=== PATIENT | female | born 1940 | race Caucasian/White ===

== ENCOUNTER 2017-11-11 10:17 | Inpatient (IN) | payer MEDICARE, MEDICAID ==
[2017-11-11] MEDS ORDERED: Benzocaine/Cetylpyridinium/Menthol Lozenge MUCMEM PRN (13:54)
[2017-11-11] MEDS ORDERED: Zolpidem 5 MG Tab PO PRN (13:54)
[2017-11-11] MEDS ORDERED: Magnesium Hydroxide 400 MG/5 ML Susp 30 ML Cup PO PRN (13:54)
[2017-11-11] MEDS ORDERED: Acetaminophen 325 MG Tab PO PRN (13:54)
--- NOTE | 2017-11-11 14:00 | PCM.HP ---
H&P History of Present Illness - General Date of Service: 11/11/17 Admit Problem/Dx: Admission Diagnosis/Problem Status post bilateral aortofemoral artery bypass grafting for history of bilateral femoral stenosis - History of Present Illness Initial Comments - Free Text/Narative: Patient is 77-year-old female who is admitted for swing bed after having bilateral aortofemoral bypass grafting at [facility] on 10/29/2017. She is still with femoral stenosis for quite some time leading to bilateral lower extremity ischemia. She also has CHF and other comorbidities along with poor nutrition and muscle wasting secondary to the above and COPD and poor intake. She requires physical therapy for strengthening, ambulation and proprioception. occupational therapy for wound cares and ADLs. She has mild cognitive deficits and is forgetful but otherwise very pleasant and conversant. At this time she denies any headache, blurred vision (she does wear glasses), tinnitus, change in taste or smell, difficulty chewing or swallowing, coughing or choking with swallowing, sore throat, neck or jaw shoulder or back pain, denies cough, wheezing, dyspnea at rest or with exertion. She is overall weak thus why she is here. She denies any palpitations, coldness to the extremities pain in the extremities other than the right plantar surface of the foot for which she was told was "gout". She has been having loose stools as of recently but otherwise regular. History of colectomy in the past with renal anastomosis for adenocarcinoma, at times incontinent of bowel bladder. She has an abdominal incision from her surgery which she denies any drainage oozing or weeping. She denies any pain or tenderness along the area. No abdominal distention. She is eager to work with physical therapy and occupational therapy. - Related Data Allergies/Adverse Reactions: Allergies Allergy/AdvReac Type Severity Reaction Status Date / Time No Known Allergies Allergy Verified 11/11/17 13:12 Home Medications: Home Meds Aspirin [Ecotrin] 81 mg PO DAILY 11/11/17 [History] Ferrous Sulfate 325 mg PO DAILY 11/11/17 [History] Furosemide [Lasix] 80 mg PO DAILY 11/11/17 [History] Levothyroxine [Synthroid] 100 mcg PO DAILY 11/11/17 [History] Lutein 20 mg PO Q48H 11/11/17 [History] Multivitamin [Daily Jaya] 1 tab PO QPM 11/11/17 [History] Naproxen Sodium 220 mg PO BID PRN 11/11/17 [History] Simvastatin [Zocor] 10 mg PO BEDTIME 11/11/17 [History] Past Medical History HEENT History: Reports: Hard of Hearing, Impaired Vision Cardiovascular History: Reports: Heart Failure, Other (See Below) Other Cardiovascular History: Atherosclerotic Peripheral Artery Disease Respiratory History: Reports: COPD Gastrointestinal History: Reports: Hiatal Hernia, Other (See Below) Other Gastrointestinal History: hx of colon cancer Genitourinary History: Reports: Urinary Incontinence 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 Psychiatric History: Reports: Dementia (Likely cerebrovascular) Endocrine/Metabolic History: Reports: Hypothyroidism Hematologic History: Reports: Iron Deficiency Oncologic (Cancer) History: Reports: Colon - Past Surgical History Cardiovascular Surgical History: Reports: Vascular Surgery (Bilateral aortofemoral bypass grafting) GI Surgical History: Reports: Colon (Partial colectomy for adenocarcinoma with reanastomosis) Oncologic Surgical History: Reports: Other (See Below) (Adenocarcinoma of the colon resection) Social & Family History - Family History Family Medical History: Noncontributory - Tobacco Use Smoking Status *Q: Former Smoker Years of Tobacco use: 64 Packs/Tins Daily: 1.5 Used Tobacco, but Quit: Yes Month Tobacco Last Used: 6 weeks Second Hand Smoke Exposure: No - Caffeine Use Caffeine Use: Reports: Coffee, Soda, Tea, Other Other Caffeine Use: iced tea with lemon and pinch of sugar - Recreational Drug Use Recreational Drug Use: No - Living Situation & Occupation Living situation: Reports: Single, Alone (appartment) H&P Review of Systems - Review of Systems: Review Of Systems: ROS reveals no pertinent complaints other than HPI. Exam - Exam Exam: See Below - Vital Signs Vital Signs: Last Vital Signs Temp 98.1 F 11/11/17 12:30 Pulse 85 11/11/17 12:30 Resp 17 11/11/17 12:30 BP 103/52 L 11/11/17 12:30 Pulse Ox 92 L 11/11/17 12:30 Weight: 59.058 kg - Exam Quality Assessment: Other (Antiembolic hoses on bilaterally at the knees) General: Alert, Oriented, Cooperative. No: Mild Distress HEENT: PERRLA, Conjunctiva Clear, Hearing Intact, Nares Patent. No: Scleral Icterus Neck: Supple, Trachea Midline. No: JVD Lungs: Crackles (Coarse bilateral lower lobes likely chronic fibrosis.). No: Rhonchi, Stridor, Wheezing Cardiovascular: Regular Rate, Regular Rhythm, Other (Prominent S2) GI/Abdominal Exam: Normal Bowel Sounds, Soft, Other (Vertical midline incision from pubis to mid abdomen above the umbilicus. Soft intact with Steri-Strips applied dry. No induration no drainage no increased warmth or erythema.) (Female) Exam: Other (Vulva erythema consistent with yeast) Extremities: Pedal Edema (3+ pedal edema dorsum of the feet up to the ankle. No ulcerations. Arterial pulses are palpable and opinion marked with pen.), Slow Capillary Refill Peripheral Pulses: 1+: Posterior Tibial (L), Posterior Tibial (R), Dorsalis Pedis (L), Dorsalis Pedis (R), 2+: Femoral (L), Femoral (R), Popliteal (L), Popliteal (R) Skin: Wound (Surgical wound to the abdomen) Neurological: Strength Equal Bilateral, Normal Speech, Sensation Intact. No: Focal Deficit Neuro Extensive - Mental Status: Normal Mood/Affect Psychiatric: Alert, Normal Affect, Normal Mood *Q Meaningful Use (ADM) - VTE *Q VTE Criteria *Q: - Stroke *Q Stroke Criteria *Q: - AMI *Q AMI Criteria *Q: - Problem List (1) H/O aorto-femoral bypass SNOMED Code(s): 890499385 ICD Code: Z95.828 - PRESENCE OF OTHER VASCULAR IMPLANTS AND GRAFTS Status: Acute Current Visit: Yes Onset Date: 10/29/17 Problem Details: Dr. Bernardo Baldwin, . [facility]. (2) Femoral artery stenosis SNOMED Code(s): 973802512 ICD Code: I70.209 - UNSP ATHSCL MATCH-E-BE-NASH-SHE-WISH BAND ARTERIES OF EXTREMITIES, UNSP EXTREMITY Status: Chronic Current Visit: Yes (3) Encounter for surgical wound dressing change SNOMED Code(s): 207735324 ICD Code: Z48.01 - ENCOUNTER FOR CHANGE OR REMOVAL OF SURGICAL WOUND DRESSING Status: Acute Current Visit: Yes (4) Diastolic CHF with preserved left ventricular function, NYHA class 2 SNOMED Code(s): 301284502 ICD Code: I50.30 - UNSPECIFIED DIASTOLIC (CONGESTIVE) HEART FAILURE Status : Chronic Current Visit: Yes (5) COPD (chronic obstructive pulmonary disease) SNOMED Code(s): 48365729 ICD Code: J44.9 - CHRONIC OBSTRUCTIVE PULMONARY DISEASE, UNSPECIFIED Status : Chronic Current Visit: Yes Qualifiers: COPD type: unspecified COPD Qualified Code(s): J44.9 - Chronic obstructive pulmonary disease, unspecified Problem List Initiated/Reviewed/Updated: Yes Orders Last 24hrs: Active Orders 24 hr Category Date Time Status Patient Status [ADT] Routine ADT 11/11/17 12:05 Active Activity as Tolerated [RC] .Routine Care 11/11/17 12:05 Active Dietary Supplements [RC] WITHMEALSANDBED Care 11/11/17 12:05 Active Height and Weight [RC] WEEKLY Care 11/11/17 13:54 Ordered Notify Provider Vital Signs [RC] ASDIRECTED Care 11/11/17 13:54 Ordered Oxygen Therapy [RC] PRN Care 11/11/17 13:54 Ordered Up With Assistance [RC] ASDIRECTED Care 11/11/17 13:54 Ordered VTE/DVT Education [RC] Per Unit Routine Care 11/11/17 13:54 Ordered Vital Signs [RC] PER UNIT ROUTINE Care 11/11/17 13:54 Ordered Wound Care [RC] DAILY Care 11/11/17 12:05 Active OT Evaluation and Treatment [CONS] Routine Cons 11/11/17 12:05 Active PT Evaluation and Treatment [CONS] Routine Cons 11/11/17 12:05 Active Regular Diet [DIET] Diet 11/11/17 Lunch Active BASIC METABOLIC PANEL,BMP [CHEM] Routine Lab 11/13/17 06:00 Ordered CBC W/O DIFF,HEMOGRAM [HEME] Routine Lab 11/13/17 06:00 Ordered MAGNESIUM [CHEM] Routine Lab 11/13/17 06:00 Ordered Acetaminophen [Tylenol] Med 11/11/17 13:54 Ordered 650 mg PO Q4H PRN Aspirin [Halfprin] Med 11/12/17 09:00 Ordered 81 mg PO DAILY Benzocaine/Cetylpyrd/Menthol [Cepacol Sore Throat] Med 11/11/17 13:54 Ordered 1 lozenge MUCMEM ASDIRECTED PRN Ferrous Sulfate Med 11/12/17 09:00 Ordered 325 mg PO DAILY Furosemide [Lasix] Med 11/12/17 09:00 Ordered 80 mg PO DAILY Levothyroxine [Synthroid] Med 11/12/17 09:00 Ordered 100 mcg PO DAILY Magnesium Hydroxide [Milk of Magnesia] Med 11/11/17 13:54 Ordered 30 ml PO Q12H PRN Multivitamins [Tab-A-Jaya] Med 11/11/17 17:00 Ordered 1 tab PO QPM Naproxen Sodium Med 11/11/17 13:50 Ordered 220 mg PO BID PRN Simvastatin [Zocor] Med 11/11/17 21:00 Ordered 10 mg PO BEDTIME Zolpidem [Ambien] Med 11/11/17 13:54 Ordered 5 mg PO BEDTIME PRN GENE Hose [Antiembolic Hose] [OM.PC] Routine Oth 11/11/17 13:46 Ordered Code Status [Resuscitation Status] Routine Resus Stat 11/11/17 13:45 Ordered Medication Orders Acetaminophen (Tylenol) 650 mg PO Q4H PRN PRN Reason: Pain (Mild 1-3)/fever Aspirin (Halfprin) 81 mg PO DAILY MAURILIO Benzocaine/Menthol (Cepacol Sore Throat) 1 lozenge MUCMEM ASDIRECTED PRN PRN Reason: Sore Throat Ferrous Sulfate (Ferrous Sulfate) 325 mg PO DAILY MAURILIO Furosemide (Lasix) 80 mg PO DAILY MAURILIO Magnesium Hydroxide (Milk Of Magnesia) 30 ml PO Q12H PRN PRN Reason: Constipation Multivitamins/Minerals/Vitamin C (Tab-A-Jaya) 1 tab PO QPM MAURILIO Naproxen (Naproxen Sodium) 220 mg PO BID PRN PRN Reason: mild pain Non-Formulary Medication (Levothyroxine [Synthroid]) 100 mcg PO DAILY MAURILIO Simvastatin (Zocor) 10 mg PO BEDTIME MAURILIO Zolpidem Tartrate (Ambien) 5 mg PO BEDTIME PRN PRN Reason: Sleep Assessment/Plan Comment:: Admit her to swing bed for physical and occupational therapy. We will continue to treat and monitor her comorbidities along with wound checks and postop revascularization evaluations. All questions answered and she has follow-up appointment already scheduled with vascular surgeon.
[2017-11-11] MEDS: Multivitamin Tab PO SCH (17:37)
[2017-11-11] MEDS: Simvastatin 10 MG Tab PO SCH (20:45)
[2017-11-11] MEDS: Nystatin Crm 15 GM Tube TOP SCH (21:20)
[2017-11-12] MEDS: Levothyroxine 100 MCG Tab PO SCH (05:39)
[2017-11-12] MEDS: Ferrous Sulfate 325 MG Tab PO SCH (08:33)
[2017-11-12] MEDS: Furosemide 80 MG Tab PO SCH (08:33)
[2017-11-12] MEDS: Aspirin 81 MG Tab.EC PO SCH (08:33)
[2017-11-12] MEDS: Nystatin Crm 15 GM Tube TOP SCH ×2 (08:33→21:26)
[2017-11-12] MEDS ORDERED: Loperamide 2 MG Tab PO ONE (14:50)
[2017-11-12] MEDS: Loperamide 2 MG Cap PO PRN (15:35)
[2017-11-12] MEDS: Multivitamin Tab PO SCH (17:12)
[2017-11-12] MEDS: Simvastatin 10 MG Tab PO SCH (21:26)
[2017-11-13] MEDS: Levothyroxine 100 MCG Tab PO SCH (06:15)
[2017-11-13] MEDS: Aspirin 81 MG Tab.EC PO SCH (08:46)
[2017-11-13] MEDS: Ferrous Sulfate 325 MG Tab PO SCH (08:46)
[2017-11-13] MEDS: Nystatin Crm 15 GM Tube TOP SCH ×2 (08:46→20:27)
[2017-11-13] MEDS: Furosemide 80 MG Tab PO SCH (08:46)
[2017-11-13] MEDS: Loperamide 2 MG Cap PO PRN (11:53)
[2017-11-13] MEDS: Multivitamin Tab PO SCH (16:38)
[2017-11-13] MEDS: Simvastatin 10 MG Tab PO SCH (20:28)
[2017-11-14] MEDS: Levothyroxine 100 MCG Tab PO SCH (06:12)
[2017-11-14] MEDS: Furosemide 80 MG Tab PO SCH (08:42)
[2017-11-14] MEDS: Nystatin Crm 15 GM Tube TOP SCH ×2 (08:43→20:28)
[2017-11-14] MEDS: Ferrous Sulfate 325 MG Tab PO SCH (08:43)
[2017-11-14] MEDS: Aspirin 81 MG Tab.EC PO SCH (08:43)
[2017-11-14] MEDS: LUTEIN 20 MG PO SCH (10:42)
[2017-11-14] MEDS: Loperamide 2 MG Cap PO PRN (17:10)
[2017-11-14] MEDS: Multivitamin Tab PO SCH (17:10)
[2017-11-14] MEDS: Simvastatin 10 MG Tab PO SCH (20:30)
[2017-11-15] MEDS: Levothyroxine 100 MCG Tab PO SCH (06:56)
[2017-11-15] MEDS: Nystatin Crm 15 GM Tube TOP SCH ×2 (09:36→20:33)
[2017-11-15] MEDS: Furosemide 80 MG Tab PO SCH (09:38)
[2017-11-15] MEDS: LUTEIN 20 MG PO SCH (09:38)
[2017-11-15] MEDS: Aspirin 81 MG Tab.EC PO SCH (09:38)
[2017-11-15] MEDS: Ferrous Sulfate 325 MG Tab PO SCH (09:39)
[2017-11-15] MEDS: Multivitamin Tab PO SCH (16:42)
[2017-11-15] MEDS: Simvastatin 10 MG Tab PO SCH (20:33)
[2017-11-16] MEDS: Levothyroxine 100 MCG Tab PO SCH (06:39)
[2017-11-16] MEDS: Furosemide 80 MG Tab PO SCH (09:19)
[2017-11-16] MEDS: Aspirin 81 MG Tab.EC PO SCH (09:19)
[2017-11-16] MEDS: Ferrous Sulfate 325 MG Tab PO SCH (09:19)
[2017-11-16] MEDS: Nystatin Crm 15 GM Tube TOP SCH ×2 (09:21→20:20)
[2017-11-16] MEDS: LUTEIN 20 MG PO SCH (10:07)
[2017-11-16] MEDS ORDERED: LUTEIN 20 MG PO SCH (12:00)
[2017-11-16] MEDS: Potassium Chloride 20 MEQ Tab.ER PO SCH (12:41)
[2017-11-16] MEDS: Magnesium Chloride 64 MG Tab.ER PO SCH ×2 (12:41→20:20)
--- NOTE | 2017-11-16 13:22 | CR ---
INDICATION: Elevated white blood count post-op. CHEST: PA and lateral views of the chest 11/16/2017 were compared with 2016 and 11/03/2017, revealing resolution of previous CHF. Some residual interstitial changes may be on the basis of fibrosis or residual interstitial lung edema. The heart did not appear enlarged, but is not well delineated due to a large fixed hiatal hernia that is again present. 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 The aorta is tortuous and calcified in the arch and descending portion. A definite active infiltrate or effusion was not identified. There is a minimal linear density at the right costophrenic angle which may represent minimal linear atelectasis. IMPRESSION: 1. Significant improvement in the appearance of the chest compared with the previous study. Resolution of CHF and most of the interstitial changes is noted , with some residual interstitial changes which may be on the basis of residual interstitial lung edema or possibly fibrosis. 2. No definite acute abnormality at this time. 3. Large fixed hiatal hernia. 4. ASD aorta. 5. 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 MTDD
[2017-11-16] MEDS: Multivitamin Tab PO SCH (16:37)
[2017-11-16] MEDS: Sulfamethoxazole/Trimethoprim 800-160 MG Tab PO SCH ×2 (17:22→20:21)
[2017-11-16] MEDS: Simvastatin 10 MG Tab PO SCH (20:21)
[2017-11-17] MEDS: Levothyroxine 100 MCG Tab PO SCH (05:22)
[2017-11-17] MEDS: Aspirin 81 MG Tab.EC PO SCH (08:59)
[2017-11-17] MEDS: Ferrous Sulfate 325 MG Tab PO SCH (08:59)
[2017-11-17] MEDS: Magnesium Chloride 64 MG Tab.ER PO SCH (08:59)
[2017-11-17] MEDS: Sulfamethoxazole/Trimethoprim 800-160 MG Tab PO SCH (08:59)
[2017-11-17] MEDS: Nystatin Crm 15 GM Tube TOP SCH (08:59)
[2017-11-17] MEDS: Potassium Chloride 20 MEQ Tab.ER PO SCH (08:59)
[2017-11-17] MEDS: Furosemide 80 MG Tab PO SCH (08:59)
--- NOTE | 2017-11-17 10:10 | PCM.DCSUM1 ---
Discharge Summary - Hospital Course HPI Initial Comments: Patient is 77-year-old female who was admitted for swing bed after having bilateral aortofemoral bypass grafting at [facility] on 10/29/2017. She also has CHF and other comorbidities along with poor nutrition and muscle wasting secondary to the above and COPD and poor intake. She required physical therapy for strengthening, ambulation and proprioception. occupational therapy for wound cares and ADLs. She has mild cognitive deficits and is forgetful but otherwise very pleasant and conversant. - Discharge Data Discharge Date: 11/17/17 Discharge Disposition: Home, Self-Care 01 Condition: Good - Discharge Diagnosis/Problem(s) (1) H/O aorto-femoral bypass SNOMED Code(s): 342572820 ICD Code: Z95.828 - PRESENCE OF OTHER VASCULAR IMPLANTS AND GRAFTS Status: Acute Current Visit: Yes Onset Date: 10/29/17 Problem Details: Dr. Bernardo Baldwin, . [facility]. (2) Femoral artery stenosis SNOMED Code(s): 712015495 ICD Code: I70.209 - UNSP ATHSCL SOLOMON ARTERIES OF EXTREMITIES, UNSP EXTREMITY Status: Chronic Current Visit: Yes (3) Acute hemorrhagic cystitis SNOMED Code(s): 29629969 ICD Code: N30.01 - ACUTE CYSTITIS WITH HEMATURIA Status: Acute Current Visit: Yes (4) Encounter for surgical wound dressing change SNOMED Code(s): 166280515 ICD Code: Z48.01 - ENCOUNTER FOR CHANGE OR REMOVAL OF SURGICAL WOUND DRESSING Status: Acute Current Visit: Yes (5) Diastolic CHF with preserved left ventricular function, NYHA class 2 SNOMED Code(s): 768255866 ICD Code: I50.30 - UNSPECIFIED DIASTOLIC (CONGESTIVE) HEART FAILURE Status : Chronic Current Visit: Yes (6) COPD (chronic obstructive pulmonary disease) SNOMED Code(s): 65467322 ICD Code: J44.9 - CHRONIC OBSTRUCTIVE PULMONARY DISEASE, UNSPECIFIED Status : Chronic Current Visit: Yes Qualifiers: COPD type: unspecified COPD Qualified Code(s): J44.9 - Chronic obstructive pulmonary disease, unspecified - Patient Summary/Data Consults: Consultations 11/11/17 12:05 OT Evaluation and Treatment [CONS] Routine Please Evaluate and Treat. OT Reason for Consult: Strengthening This query below is only for informational purposes and is not editable. PT Evaluation and Treatment [CONS] Routine Please Evaluate and Treat. PT Reason for Consult: Strengthening This query below is only for informational purposes and is not editable. Hospital Course: [facility]. Continued to treat and monitor her comorbidities along with wound checks and postop revascularization evaluations. She developed elevating wbc and ua demonstrated acute UTI with gram negative rods >100,000 cfu. likely ecoli. started on bactrim ds bid and wbc normal following day. otherwise surgical sites healing nicely and she is ready to "go home:-)" - Patient Instructions Diet: Heart Healthy Diet Activity: As Tolerated, Cough & Deep Breathe, No Lifting Over 20 Pounds Showering/Bathing: May Shower Wound/Incision Care: Keep Operative Site/Wound Site Clean and Dry Notify Provider of: Fever, Increased Pain, Swelling and Redness, Drainage, Nausea and/or Vomiting - Discharge Plan Prescriptions/Med Rec: Acetaminophen [Tylenol] 650 mg PO Q4H PRN #90 tablet PRN Reason: Pain (Mild 1-3)/fever Ferrous Sulfate 325 mg PO DAILY #90 tablet Furosemide [Lasix] 80 mg PO DAILY #60 tablet Magnesium Chloride [Mag-64] 64 mg PO BID #60 tab.er Nystatin [Nystatin Crm] 1 gm TOP BID #1 tube Potassium Chloride [Klor-Con M20] 20 meq PO DAILY #30 tab.er Sulfamethoxazole/Trimethoprim [Bactrim Ds Tablet] 1 each PO BID #8 tablet Home Medications: Home Meds Aspirin [Ecotrin] 81 mg PO DAILY 11/11/17 [History] Levothyroxine [Synthroid] 100 mcg PO DAILY 11/11/17 [History] Lutein 20 mg PO Q48H 11/11/17 [History] Multivitamin [Daily Jaya] 1 tab PO QPM 11/11/17 [History] Naproxen Sodium 220 mg PO BID PRN 11/11/17 [History] Simvastatin [Zocor] 10 mg PO BEDTIME 11/11/17 [History] Acetaminophen [Tylenol] 650 mg PO Q4H PRN #90 tablet 11/17/17 [Rx] Ferrous Sulfate 325 mg PO DAILY #90 tablet 11/17/17 [Rx] Furosemide [Lasix] 80 mg PO DAILY #60 tablet 11/17/17 [Rx] Magnesium Chloride [Mag-64] 64 mg PO BID #60 tab.er 11/17/17 [Rx] Nystatin [Nystatin Crm] 1 gm TOP BID #1 tube 11/17/17 [Rx] Potassium Chloride [Klor-Con M20] 20 meq PO DAILY #30 tab.er 11/17/17 [Rx] Sulfamethoxazole/Trimethoprim [Bactrim Ds Tablet] 1 each PO BID #8 tablet [Rx] Patient Handouts: Venous Thromboembolism Prevention Forms: Take Home DC Nutrition Plan - Discharge Summary/Plan Comment DC Time >30 min.: Yes Discharge Summary/Plan Comment: will continue nystatin to groin for 7 days. continue bactrim ds for additional 4 days then follow up UA in clinic in a week for UTI. appt with ortho already scheduled and she will schedule follow up with her Pcp for med review withing 2wks. - General Info Date of Service: 11/17/17 Functional Status: Reports: Pain Controlled, Tolerating Diet, Ambulating, Urinating, Incentive Spirometry - Review of Systems General: Reports: No Symptoms HEENT: Reports: No Symptoms Pulmonary: Reports: No Symptoms Cardiovascular: Reports: No Symptoms Gastrointestinal: Reports: No Symptoms Genitourinary: Reports: No Symptoms Musculoskeletal: Reports: No Symptoms Skin: Reports: No Symptoms Neurological: Reports: No Symptoms Psychiatric: Reports: No Symptoms - Patient Data Vitals - Most Recent: Vital Signs (72 hours) 11/15/17 11/16/17 11/17/17 08:00 07:40 06:44 Temperature [ 98 F 97.8 F 98 F Oral] Pulse, 82 85 78 Peripheral [ Left Pulse Oximetry] Respiratory 26 H 20 20 Rate Blood Pressure 110/58 L 94/50 L 112/50 L [Right Upper Arm] O2 Sat by Pulse 92 L 94 L 91 L Oximetry Weight - Most Recent: 58.712 kg I&O - Last 24 hours: Intake & Output 11/16/17 11/17/17 11/17/17 22:59 06:59 14:59 Other: Breakfast Percent 100 Consumed Dinner Percent Consumed 100 Imaging Impressions - Last 24 hrs: CXR 11/16/2017- negative for pneumonia or effusion. Lab Results - Last 24 hrs: Laboratory Tests 11/13/17 11/13/17 11/15/17 Range/Units 06:50 06:50 10:47 WBC 12.8 H 14.6 H (4.5-12.0) X10-3/uL RBC 3.38 3.61 (3.23-5.20) x10(6)uL Hgb 9.9 L 10.5 L (11.5-15.5) g/dL Hct 30.0 32.5 (30.0-51.3) % MCV 88.7 89.9 (80-96) fL MCH 29.4 29.0 (27.7-33.6) pg MCHC 33.1 32.3 (32.2-35.4) g/dL RDW 14.8 14.6 (11.5-15.5) % Plt Count 487 H 628 H (125-369) X10(3)uL MPV 8.7 (7.4-10.4) fL Neut % (Auto) 89.3 H (46-82) % Lymph % (Auto) 4.3 L (13-37) % Stone % (Auto) 5.5 (4-12) % Eos % (Auto) 0 L (1.0-5.0) % Baso % (Auto) 1 (0-2) % Neut # (Auto) 13.1 H (1.6-8.3) # Lymph # (Auto) 0.6 (0.6-5.0) # Stone # (Auto) 0.8 (0.0-1.3) # Eos # (Auto) 0.0 (0.0-0.8) # Baso # (Auto) 0.1 (0.0-0.2) # Add Manual Diff Neutrophils % (Manual) (46-82) % Lymphocytes % (Manual) (13-37) % Monocytes % (Manual) (4-12) % Eosinophils % (Manual) (0-5) % Hypersegmented Neuts Clumped Platelets Macrocytosis PT (8.7-11.1) INR (0.89-1.13) APTT (24.4-33.2) SECONDS Sodium 139 (135-145) mmol/L Potassium 3.2 L (3.5-5.3) mmol/L Chloride 100 (100-110) mmol/L Carbon Dioxide 35 H (21-32) mmol/L BUN 14 (7-18) mg/dL Creatinine 0.7 (0.55-1.02) mg/dL Est Cr Clr Drug Dosing 60.37 mL/min Estimated GFR (MDRD) > 60 (>60) BUN/Creatinine Ratio 20.0 (9-20) Glucose 84 (80-116) mg/dL Calcium 8.4 L (8.6-10.2) mg/dL Magnesium 1.6 L (1.8-2.5) mg/dL Total Bilirubin (0.1-1.3) mg/dL AST (5-25) IU/L ALT (12-36) U/L Alkaline Phosphatase (56-112) IU/L C-Reactive Protein (0.5-0.9) mg/dL Total Protein (6.0-8.0) g/dL Albumin (3.2-4.6) g/dL Globulin g/dL Albumin/Globulin Ratio Urine Color (YELLOW) Urine Appearance (CLEAR) Urine pH (5.0-6.5) Ur Specific [place] (1.010-1.025) Urine Protein (NEGATIVE) mg/dL Urine Glucose (UA) (NEGATIVE) mg/dL Urine Ketones (NEGATIVE) mg/dL Urine Occult Blood (NEGATIVE) Urine Nitrite (NEGATIVE) Urine Bilirubin (NEGATIVE) Urine Urobilinogen (NEGATIVE) mg/dL Ur Leukocyte Esterase (NEGATIVE) Urine RBC (0) Urine WBC (0) Ur Squamous Epith Cells (NS,R,O) Urine Bacteria (NS) Urine Mucus (NS) Urine Yeast (NS) 11/15/17 11/16/17 11/16/17 Range/Units 10:47 12:30 13:55 WBC (4.5-12.0) X10-3/uL RBC (3.23-5.20) x10(6)uL Hgb (11.5-15.5) g/dL Hct (30.0-51.3) % MCV (80-96) fL MCH (27.7-33.6) pg MCHC (32.2-35.4) g/dL RDW (11.5-15.5) % Plt Count (125-369) X10(3)uL MPV (7.4-10.4) fL Neut % (Auto) (46-82) % Lymph % (Auto) (13-37) % Stone % (Auto) (4-12) % Eos % (Auto) (1.0-5.0) % Baso % (Auto) (0-2) % Neut # (Auto) (1.6-8.3) # Lymph # (Auto) (0.6-5.0) # Stone # (Auto) (0.0-1.3) # Eos # (Auto) (0.0-0.8) # Baso # (Auto) (0.0-0.2) # Add Manual Diff Neutrophils % (Manual) (46-82) % Lymphocytes % (Manual) (13-37) % Monocytes % (Manual) (4-12) % Eosinophils % (Manual) (0-5) % Hypersegmented Neuts Clumped Platelets Macrocytosis PT (8.7-11.1) INR (0.89-1.13) APTT (24.4-33.2) SECONDS Sodium 139 (135-145) mmol/L Potassium 3.1 L (3.5-5.3) mmol/L Chloride 96 L (100-110) mmol/L Carbon Dioxide 35 H (21-32) mmol/L BUN 15 (7-18) mg/dL Creatinine 0.8 (0.55-1.02) mg/dL Est Cr Clr Drug Dosing 52.82 mL/min Estimated GFR (MDRD) > 60 (>60) BUN/Creatinine Ratio 18.8 (9-20) Glucose 91 (80-116) mg/dL Calcium 8.7 (8.6-10.2) mg/dL Magnesium (1.8-2.5) mg/dL Total Bilirubin 0.6 (0.1-1.3) mg/dL AST 19 (5-25) IU/L ALT 9 L (12-36) U/L Alkaline Phosphatase 105 (56-112) IU/L C-Reactive Protein 3.6 H* (0.5-0.9) mg/dL Total Protein 6.4 (6.0-8.0) g/dL Albumin 2.2 L (3.2-4.6) g/dL Globulin 4.2 g/dL Albumin/Globulin Ratio 0.5 Urine Color Yellow (YELLOW) Urine Appearance Cloudy (CLEAR) Urine pH 7.0 H (5.0-6.5) Ur Specific [place] 1.010 (1.010-1.025) Urine Protein Negative (NEGATIVE) mg/dL Urine Glucose (UA) Normal (NEGATIVE) mg/dL Urine Ketones Negative (NEGATIVE) mg/dL Urine Occult Blood Moderate H (NEGATIVE) Urine Nitrite Negative (NEGATIVE) Urine Bilirubin Negative (NEGATIVE) Urine Urobilinogen 1 H (NEGATIVE) mg/dL Ur Leukocyte Esterase Moderate H (NEGATIVE) Urine RBC 5-10 (0) Urine WBC 0-5 (0) Ur Squamous Epith Cells Moderate H (NS,R,O) Urine Bacteria Moderate H (NS) Urine Mucus Few H (NS) Urine Yeast Moderate H (NS) 11/17/17 11/17/17 11/17/17 Range/Units 06:30 06:30 06:30 WBC 10.6 (4.5-12.0) X10-3/uL RBC 3.29 (3.23-5.20) x10(6)uL Hgb 9.2 L (11.5-15.5) g/dL Hct 29.4 L (30.0-51.3) % MCV 89.4 (80-96) fL MCH 28.1 (27.7-33.6) pg MCHC 31.4 L (32.2-35.4) g/dL RDW 14.7 (11.5-15.5) % Plt Count 367 (125-369) X10(3)uL MPV 9.1 (7.4-10.4) fL Neut % (Auto) (46-82) % Lymph % (Auto) (13-37) % Stone % (Auto) (4-12) % Eos % (Auto) (1.0-5.0) % Baso % (Auto) (0-2) % Neut # (Auto) (1.6-8.3) # Lymph # (Auto) (0.6-5.0) # Stone # (Auto) (0.0-1.3) # Eos # (Auto) (0.0-0.8) # Baso # (Auto) (0.0-0.2) # Add Manual Diff Yes Neutrophils % (Manual) 89 H (46-82) % Lymphocytes % (Manual) 4 L (13-37) % Monocytes % (Manual) 4 (4-12) % Eosinophils % (Manual) 3 (0-5) % Hypersegmented Neuts Few Clumped Platelets Few Macrocytosis Occasional PT 12.1 H (8.7-11.1) INR 1.20 H (0.89-1.13) APTT 20.1 L (24.4-33.2) SECONDS Sodium 138 (135-145) mmol/L Potassium 3.2 L (3.5-5.3) mmol/L Chloride 98 L (100-110) mmol/L Carbon Dioxide 34 H (21-32) mmol/L BUN 14 (7-18) mg/dL Creatinine 0.8 (0.55-1.02) mg/dL Est Cr Clr Drug Dosing 52.85 mL/min Estimated GFR (MDRD) > 60 (>60) BUN/Creatinine Ratio 17.5 (9-20) Glucose 88 (80-116) mg/dL Calcium 8.5 L (8.6-10.2) mg/dL Magnesium 1.7 L (1.8-2.5) mg/dL Total Bilirubin (0.1-1.3) mg/dL AST (5-25) IU/L ALT (12-36) U/L Alkaline Phosphatase (56-112) IU/L C-Reactive Protein (0.5-0.9) mg/dL Total Protein (6.0-8.0) g/dL Albumin (3.2-4.6) g/dL Globulin g/dL Albumin/Globulin Ratio Urine Color (YELLOW) Urine Appearance (CLEAR) Urine pH (5.0-6.5) Ur Specific [place] (1.010-1.025) Urine Protein (NEGATIVE) mg/dL Urine Glucose (UA) (NEGATIVE) mg/dL Urine Ketones (NEGATIVE) mg/dL Urine Occult Blood (NEGATIVE) Urine Nitrite (NEGATIVE) Urine Bilirubin (NEGATIVE) Urine Urobilinogen (NEGATIVE) mg/dL Ur Leukocyte Esterase (NEGATIVE) Urine RBC (0) Urine WBC (0) Ur Squamous Epith Cells (NS,R,O) Urine Bacteria (NS) Urine Mucus (NS) Urine Yeast (NS) [facility] Results - Last 24 hrs: Microbiology 11/16/17 13:55 Urine Culture - Preliminary Urine, Voided Gram Negative Rods Med Orders - Current: Current Medications Acetaminophen (Tylenol) 650 mg PO Q4H PRN PRN Reason: Pain (Mild 1-3)/fever Aspirin (Halfprin) 81 mg PO DAILY [facility] Last Admin: 11/17/17 08:59 Dose: 81 mg Benzocaine/Menthol (Cepacol Sore Throat) 1 lozenge MUCMEM ASDIRECTED PRN PRN Reason: Sore Throat Ferrous Sulfate (Ferrous Sulfate) 325 mg PO DAILY [facility] Last Admin: 11/17/17 08:59 Dose: 325 mg Furosemide (Lasix) 80 mg PO DAILY [facility] Last Admin: 11/17/17 08:59 Dose: 80 mg Levothyroxine Sodium (Synthroid) 100 mcg PO DAILY@0600 [facility] Last Admin: 11/17/17 05:22 Dose: 100 mcg Loperamide HCl (Imodium) 2 mg PO Q4H PRN PRN Reason: Diarrhea Last Admin: 11/14/17 17:10 Dose: 2 mg Magnesium Chloride (Mag-64) 64 mg PO BID [facility] Last Admin: 11/17/17 08:59 Dose: 64 mg Multivitamins/Minerals/Vitamin C (Tab-A-Jaya) 1 tab PO QPM [facility] Last Admin: 11/16/17 16:37 Dose: 1 tab Naproxen (Naproxen Sodium) 220 mg PO BID PRN PRN Reason: mild pain Lutein 20mg Cap * (Ptom) 1 each PO Q48H [facility] Last Admin: 11/16/17 12:42 Dose: 1 each Nystatin (Nystatin Crm) 0 gm TOP BID [facility] Last Admin: 11/17/17 08:59 Dose: 1 applic Potassium Chloride (Klor-Con M20) 20 meq PO DAILY [facility] Last Admin: 11/17/17 08:59 Dose: 20 meq Simvastatin (Zocor) 10 mg PO BEDTIME [facility] Last Admin: 11/16/17 20:21 Dose: 10 mg Trimethoprim/Sulfamethoxazole (Septra Ds) 1 tab PO BID [facility] Last Admin: 11/17/17 08:59 Dose: 1 tab Zolpidem Tartrate (Ambien) 5 mg PO BEDTIME PRN PRN Reason: Sleep Discontinued Medications Loperamide HCl (Imodium Ad) 4 mg PO ONETIME ONE Stop: 11/12/17 14:51 Last Admin: 11/12/17 15:36 Dose: 4 mg Lutein (Lutein) 20 mg PO DAILY [facility] Last Admin: 11/14/17 11:14 Dose: Not Given Magnesium Hydroxide (Milk Of Magnesia) 30 ml PO Q12H PRN PRN Reason: Constipation Lutein 20mg Cap * (Ptom) 1 each PO DAILY [facility] Last Admin: 11/16/17 10:07 Dose: Not Given - Exam Physical Findings Comments:: General: Alert, Oriented, Cooperative. No: Mild Distress HEENT: Conjunctiva Clear, Hearing Intact, Nares Patent. No: Scleral Icterus Neck: Supple, Trachea Midline. No: JVD Lungs: Crackles (Coarse bilateral lower lobes likely chronic fibrosis.). No: Rhonchi, Stridor, Wheezing Cardiovascular: Regular Rate, Regular Rhythm, Other (Prominent S2) GI/Abdominal Exam: Normal Bowel Sounds, Soft, Other (Vertical midline incision from pubis to mid abdomen above the umbilicus. Soft intact with Steri-Strips applied dry. No induration no drainage no increased warmth or erythema.) Appropriate healing. (Female) Exam: Other (Vulva and inguinal erythema consistent with yeast improved with nystatin Extremities: Pedal Edema (1+ pedal edema dorsum of the feet up to the ankle. No ulcerations. Arterial pulses are palpable, normal Capillary Refill Peripheral Pulses: 1+: Posterior Tibial (L), Posterior Tibial (R), Dorsalis Pedis (L), Dorsalis Pedis (R), 2+: Femoral (L), Femoral (R), Popliteal (L), Popliteal (R) Skin: Wound (Surgical wound to the abdomen and inguinals) Neurological: Strength Equal Bilateral, Normal Speech, Sensation Intact. No: Focal Deficit Neuro Extensive - Mental Status: Normal Mood/Affect Psychiatric: Alert, Normal Affect, Normal Mood *Q Meaningful Use (DIS) - VTE *Q VTE Criteria *Q: - Stroke *Q Stroke Criteria *Q: - AMI *Q AMI Criteria *Q:
== END 2017-11-17 14:05 | disposition home or self-care (01) | DRG 948 ==
LOC: FB.MS 12:00
PROVIDERS: ADMIT Family Medicine; ATTEND Family Medicine
DX: R53.1 Weakness (principal); N39.0 Urinary tract infection, site not specified; I50.30 Unspecified diastolic (congestive) heart failure; Z98.890 Other specified postprocedural states; Z95.828 Presence of other vascular implants and grafts; B96.20 Unspecified Escherichia coli [E. coli] as the cause of diseases classified elsewhere; E03.9 Hypothyroidism, unspecified; J44.9 Chronic obstructive pulmonary disease, unspecified; E61.1 Iron deficiency; Z85.038 Personal history of other malignant neoplasm of large intestine; M62.58 Muscle wasting and atrophy, not elsewhere classified, other site; G31.84 Mild cognitive impairment of uncertain or unknown etiology; Z90.49 Acquired absence of other specified parts of digestive tract; H91.90 Unspecified hearing loss, unspecified ear; H54.7 Unspecified visual loss; Z87.891 Personal history of nicotine dependence; Z79.82 Long term (current) use of aspirin
CPT/HCPCS: 36415; 71046; 80048; 80053; 81001; 83735; 85025; 85027; 85610; 85730; 86140; 87040; 87086; 87088; 87186; 97110-GP; 97116-GP; 97162-GP; 97165-GO; 97530-GO-KX; 97530-GP; 97535-GO; A9270-GY